=== PATIENT | male | born 1960 | race Caucasian/White ===

== ENCOUNTER → 2017-12-31 07:54 | Outpatient (CLI) | payer BC, SELFPAY ==
[2017-12-31 09:17] LABS: Absolute Lymphocyte Count 1.51 X10^3/ul (0.83-4.51); Absolute Neutrophil Count 3.5 X10^3/uL (2.0-7.7); Basophil# 0.09 X10^3/uL; Basophil% 1.5 % (0-1); Eosinophil# 0.36 X10^3/uL; Hematocrit 43.3 % (40-54); Hemoglobin 14.5 g/dl (13.0-16.5); Lymphocyte # 1.51 X10^3/ul (4.0); Mean Corp Hgb Conc 33.5 g/gl (32-36); Mean Corpuscular Hgb 29.2 pg (27.0-32.0); Mean Corpuscular Volume 87.1 fL (80-94); Mean Platelet Vol. 9.8 fl (6.2-12.0); Monocyte# 0.52 X10^3/uL; Monocyte% 8.6 % (0-10); Neutrophil # 3.53 X10^3/uL (2.7-7.7); Neutrophil % 58.4 % (47-70); Platelet Count 260 K/mm3 (150-450); RBC Distribution Width CV 13.1 % (11.6-14.6); RBC Distribution Width SD 41.1 fl (35.1-43.9); Red Blood Count 4.97 M/mm3 (4.6-6.2)
[2017-12-31 09:21] LABS: POSITIVE COUNT NO; POSITIVE DIFFERENTIAL NO; POSITIVE MORPHOLOGY NO
[2017-12-31 09:34] LABS: AST(SGOT) 26 U/L (15-37); Alanine Aminotransfer ALT/SGPT 30 U/L (16-61); Albumin, Serum 3.6 g/dL (3.2-5.0); Alkaline Phosphatase 77 U/L (45-117); Anion Gap 6 (5-15); BUN 14 mg/dL (7-18); BUN/Creat Ratio 16.2 RATIO (10-20); Calcium,Total 8.6 mg/dL (8.5-10.1); Chloride 105 mmol/L (98-107); Cholesterol 140 mg/dL (200); Creatinine, Serum 0.86 mg/dL (0.70-1.30); EST Glomerular Filtration Rate 97 mL/min (>60); Est Glom Filt Rate - Afr Amer 117 mL/min (>60); Globulin 3.7 g/dL (2.2-4.2); Glucose 81 mg/dL (74-106); High Density Lipoprotein 51 mg/dL; PSA,Total - Annual Screen 4.06 ng/mL (0.00-4.00); Potassium 4.1 mmol/L (3.5-5.1); Protein, Total 7.3 g/dL (6.4-8.2); Sodium Level 138 mmol/L (136-145); Triglycerides 99 mg/dL; Very Low Density Lipoprotein 20 mg/dL (5-40)
== END ==
PROVIDERS: Family Provider Family Medicine; PCP Family Medicine; Visit Provider Family Medicine
DX: Z00.01 Encounter for general adult medical examination with abnormal findings (principal); Z12.5 Encounter for screening for malignant neoplasm of prostate; E78.5 Hyperlipidemia, unspecified
CPT/HCPCS: 36415; 80053; 80061; 84153; 85025; G0103

== ENCOUNTER → 2019-02-03 06:51 | Outpatient (CLI) | payer BC, SELFPAY ==
[2019-02-03 07:01] LABS: Absolute Lymphocyte Count 0.92 X10^3/ul (0.83-4.51); Absolute Neutrophil Count 3.9 X10^3/uL (2.0-7.7); Basophil# 0.04 X10^3/uL; Basophil% 0.7 % (0-1); Eosinophils% 6.8 % (0-5); Hematocrit 42.7 % (40-54); Hemoglobin 14.3 g/dl (13.0-16.5); Lymphocyte # 0.92 X10^3/ul (4.0); Lymphocyte % 15.8 % (19-41); Mean Corp Hgb Conc 33.5 g/gl (32-36); Mean Corpuscular Volume 86.6 fL (80-94); Mean Platelet Vol. 9.1 fl (6.2-12.0); Monocyte% 10.3 % (0-10); Neutrophil # 3.87 X10^3/uL (2.7-7.7); Neutrophil % 66.2 % (47-70); Platelet Count 235 K/mm3 (150-450); RBC Distribution Width CV 13.6 % (11.6-14.6); RBC Distribution Width SD 42.7 fl (35.1-43.9); Red Blood Count 4.93 M/mm3 (4.6-6.2); White Blood Count 5.8 K/mm3 (4.4-11.0)
[2019-02-03 07:05] LABS: POSITIVE COUNT NO; POSITIVE DIFFERENTIAL NO; POSITIVE MORPHOLOGY NO
[2019-02-03 07:30] LABS: AST(SGOT) 30 U/L (15-37); Alanine Aminotransfer ALT/SGPT 34 U/L (16-61); Albumin, Serum 3.5 g/dL (3.2-5.0); Alkaline Phosphatase 75 U/L (45-117); Anion Gap 6 (5-15); BUN 12 mg/dL (7-18); BUN/Creat Ratio 12.6 RATIO (10-20); Calcium,Total 8.6 mg/dL (8.5-10.1); Chloride 108 mmol/L (98-107); Cholesterol 136 mg/dL (200); Creatinine, Serum 0.96 mg/dL (0.70-1.30); EST Glomerular Filtration Rate 86 mL/min (>60); Est Glom Filt Rate - Afr Amer 104 mL/min (>60); Globulin 3.4 g/dL (2.2-4.2); Glucose 93 mg/dL (74-106); High Density Lipoprotein 43 mg/dL; PSA,Total - Annual Screen 3.28 ng/mL (0.00-4.00); Protein, Total 6.9 g/dL (6.4-8.2); Sodium Level 139 mmol/L (136-145); Triglycerides 135 mg/dL; Very Low Density Lipoprotein 27 mg/dL (5-40)
== END ==
LOC: LAB 06:52 → LABSPEC 02-05 08:24
PROVIDERS: Referring Provider Family Medicine; Visit Provider Family Medicine
DX: Z00.00 Encounter for general adult medical examination without abnormal findings (principal); Z12.5 Encounter for screening for malignant neoplasm of prostate
CPT/HCPCS: 36415; 80053; 80061; 84153; 85025; G0103

== ENCOUNTER → 2020-03-15 08:08 | Outpatient (CLI) | payer BC, SELFPAY ==
[2018-12-11 17:44] VITALS: BMI 33.6
[2020-03-15 08:28] LABS: Absolute Lymphocyte Count 1.29 X10^3/uL (0.83-4.51); Absolute Neutrophil Count 4.5 X10^3/uL (2.0-7.7); Basophil# 0.09 X10^3/uL; Basophil% 1.3 % (0-1); Eosinophil# 0.48 X10^3/uL; Hemoglobin 14.2 g/dL (13.0-16.5); Lymphocyte # 1.29 X10^3/ul (4.0); Lymphocyte % 18.7 % (19-41); Mean Corpuscular Hgb 28.6 pg (27.0-32.0); Mean Corpuscular Volume 86.5 fL (80-94); Mean Platelet Vol. 9.1 fl (6.2-12.0); Monocyte# 0.52 X10^3/uL; Monocyte% 7.5 % (0-10); NRBC Flagged by Analyzer 0 % (0-5); Neutrophil % 65.2 % (47-70); Platelet Count 242 K/mm3 (150-450); RBC Distribution Width CV 13.4 % (11.6-14.6); RBC Distribution Width SD 42.1 fl (35.1-43.9); Red Blood Count 4.97 M/mm3 (4.6-6.2); White Blood Count 6.9 K/mm3 (4.4-11.0)
--- NOTE | 2020-03-15 08:30 | RAD_ITS ---
STUDY: X-RAY - PELVIS AND BILATERAL HIPS REASON FOR EXAM: Male, 59 years old. BILATERAL HIP PAIN. NO KNOWN INJURY. TECHNIQUE: AP view of the pelvis.? 2 views of the right hip, and 2 views of the left hip were obtained. COMPARISON: None. FINDINGS: There is a non-specific bowel gas pattern. Normal visualized soft tissue structures. Normal bilateral iliac wings, sacroiliac joints and visualized sacrum. Normal bilateral superior and inferior pubic rami. Normal pubic symphysis. Normal bilateral ischial tuberosities. Normal visualized right femoral head. Normal right acetabulum. Normal right hip joint. Normal visualized left femoral head. Normal left acetabulum. Normal left hip joint. RAD/Hips B/L min 2 views w/ Pelvis IMPRESSION: Normal x-ray examination of the pelvis and bilateral hips. Electronically Signed: Smith Thurston, at 9:04 EDT Tel , Service support ,
[2020-03-15 08:51] LABS: AST(SGOT) 22 U/L (15-37); Alanine Aminotransfer ALT/SGPT 28 U/L (16-61); Albumin, Serum 3.6 g/dL (3.2-5.0); Alkaline Phosphatase 69 U/L (45-117); Anion Gap 7 (5-15); BUN 13 mg/dL (7-18); BUN/Creat Ratio 14.3 RATIO (10-20); Calcium,Total 8.6 mg/dL (8.5-10.1); Chloride 111 mmol/L (98-107); Cholesterol 178 mg/dL (200); Creatinine, Serum 0.91 mg/dL (0.70-1.30); EST Glomerular Filtration Rate 90 mL/min (>60); Est Glom Filt Rate - Afr Amer 109 mL/min (>60); Globulin 3.6 g/dL (2.2-4.2); Glucose 94 mg/dL (74-106); High Density Lipoprotein 56 mg/dL; PSA,Total - Annual Screen 4.58 ng/mL (0.00-4.00); Potassium 4.2 mmol/L (3.5-5.1); Protein, Total 7.2 g/dL (6.4-8.2); Sodium Level 142 mmol/L (136-145); Triglycerides 90 mg/dL; Very Low Density Lipoprotein 18 mg/dL (5-40)
== END ==
PROVIDERS: PCP Family Medicine; Referring Provider Family Medicine; Visit Provider Family Medicine
DX: Z00.00 Encounter for general adult medical examination without abnormal findings (principal); M25.551 Pain in right hip; M25.552 Pain in left hip; Z12.5 Encounter for screening for malignant neoplasm of prostate
CPT/HCPCS: 36415; 73521; 80053; 80061; 84153; 85025; G0103

== ENCOUNTER → 2021-01-31 08:18 | Outpatient (CLI) | payer BC, SELFPAY ==
[2018-12-11 17:44] VITALS: BMI 33.6
[2021-01-31 08:56] LABS: Absolute Lymphocyte Count 1.42 X10^3/uL (0.83-4.51); Absolute Neutrophil Count 4.1 X10^3/uL (2.0-7.7); Basophil# 0.08 X10^3/uL; Basophil% 1.2 % (0-1); Eosinophil# 0.47 X10^3/uL; Eosinophils% 7.1 % (0-5); Hematocrit 43.6 % (40-54); Hemoglobin 14.5 g/dL (13.0-16.5); Lymphocyte # 1.42 X10^3/ul (4.0); Lymphocyte % 21.4 % (19-41); Mean Corp Hgb Conc 33.3 g/dL (32-36); Mean Corpuscular Hgb 29.3 pg (27.0-32.0); Mean Corpuscular Volume 88.1 fL (80-94); Mean Platelet Vol. 9.2 fl (6.2-12.0); Monocyte# 0.55 X10^3/uL; Monocyte% 8.3 % (0-10); NRBC Flagged by Analyzer 0 % (0-5); Neutrophil # 4.08 X10^3/uL (2.7-7.7); Neutrophil % 61.5 % (47-70); Platelet Count 288 K/mm3 (150-450); RBC Distribution Width CV 13.3 % (11.6-14.6); RBC Distribution Width SD 43.4 fl (35.1-43.9); Red Blood Count 4.95 M/mm3 (4.6-6.2); White Blood Count 6.6 K/mm3 (4.4-11.0)
[2021-01-31 09:18] LABS: AST(SGOT) 21 U/L (15-37); Alanine Aminotransfer ALT/SGPT 31 U/L (16-61); Albumin, Serum 3.8 g/dL (3.2-5.0); Alkaline Phosphatase 74 U/L (45-117); Anion Gap 6 (5-15); BUN 17 mg/dL (7-18); BUN/Creat Ratio 17.3 RATIO (10-20); Chloride 107 mmol/L (98-107); Cholesterol 192 mg/dL (200); Creatinine, Serum 0.98 mg/dL (0.70-1.30); EST Glomerular Filtration Rate 82 mL/min (>60); Est Glom Filt Rate - Afr Amer 99 mL/min (>60); Globulin 3.8 g/dL (2.2-4.2); Glucose 91 mg/dL (74-106); High Density Lipoprotein 55 mg/dL; PSA,Total - Annual Screen 4.96 ng/mL (0.00-4.00); Protein, Total 7.6 g/dL (6.4-8.2); Sodium Level 140 mmol/L (136-145); Triglycerides 79 mg/dL; Very Low Density Lipoprotein 16 mg/dL (5-40)
== END ==
PROVIDERS: PCP Family Medicine; Referring Provider Family Medicine; Visit Provider Family Medicine
DX: Z00.00 Encounter for general adult medical examination without abnormal findings (principal); Z12.5 Encounter for screening for malignant neoplasm of prostate
CPT/HCPCS: 36415; 80053; 80061; 84153; 85025; G0103

== ENCOUNTER → 2021-02-19 10:39 | Outpatient (CLI) | payer BC, SELFPAY ==
[2018-12-11 17:44] VITALS: BMI 33.6
--- NOTE | 2021-02-19 10:41 | VDLE_ITS ---
Reason For Study: Hematoma right leg RIGHT GSV is normal. CFV is compressible, spontaneous, phasic, competent and demonstrates normal augmentation. FV is compressible, spontaneous, phasic, competent and demonstrates normal augmentation. POP V is compressible, spontaneous, phasic, competent and demonstrates normal augmentation. T/P Trunk is compressible. PTV is compressible. RT PerV is compressible. Nonvascularized structure noted at the anterior mid calf measuring approximently 2.70 x 1.01 x 3.37 cm. Procedure This is a venous duplex using B-mode, color flow and spectral Doppler. Exam performed in department. A preliminary report was called and/or faxed to S[facility]. VL/Venous Duplex US, Unilateral Interpretation Summary Deep veins of the right lower extremity are patent and compressible segmentally . There is no evidence of right lower extremity deep vein thrombosis. Valvular competence kirstin ears intact within the proximal deep venous system on the right . The right great saphenous vein a ppears patent and compressible segmentally. A non-vascular structure is noted in the right anteri or mid-calf, measuring 2.70 cm x 1.01 cm x 3.37 cm. This may represent a hematoma. Clinical correlation is advised. Ordering Physician: Edgar Hill Referring Physician: Edgar Hill Performed By: Elyse Mccullough RVT
== END ==
PROVIDERS: PCP Family Medicine; Referring Provider Family Medicine; Visit Provider Family Medicine
DX: S80.11XA Contusion of right lower leg, initial encounter (principal)
CPT/HCPCS: 93971

== ENCOUNTER 2022-02-06 07:49 | Outpatient (CLI) | payer BC, SELFPAY ==
[2022-02-06 08:28] LABS: Absolute Lymphocyte Count 1.54 X10^3/uL (0.83-4.51); Absolute Neutrophil Count 4.3 X10^3/uL (2.0-7.7); Basophil# 0.08 X10^3/uL; Basophil% 1.1 % (0-1); Eosinophil# 0.38 X10^3/uL; Eosinophils% 5.4 % (0-5); Hematocrit 44.8 % (40-54); Hemoglobin 14.7 g/dL (13.0-16.5); Lymphocyte # 1.54 X10^3/ul (0.83-4.51); Mean Corp Hgb Conc 32.8 g/dL (32-36); Mean Corpuscular Hgb 29.2 pg (27.0-32.0); Mean Corpuscular Volume 88.9 fL (80-94); Mean Platelet Vol. 9.3 fl (6.2-12.0); Monocyte# 0.67 X10^3/uL; Monocyte% 9.6 % (0-10); NRBC Flagged by Analyzer 0 % (0-5); Neutrophil # 4.29 X10^3/uL (2.7-7.7); Neutrophil % 61.5 % (47-70); Platelet Count 257 K/mm3 (150-450); RBC Distribution Width CV 13.1 % (11.6-14.6); RBC Distribution Width SD 42.4 fl (35.1-43.9); Red Blood Count 5.04 M/mm3 (4.6-6.2)
[2022-02-06 08:48] LABS: AST(SGOT) 23 U/L (15-37); Alanine Aminotransfer ALT/SGPT 29 U/L (16-61); Albumin, Serum 3.6 g/dL (3.2-5.0); Alkaline Phosphatase 68 U/L (45-117); Anion Gap 3 (5-15); BUN 12 mg/dL (7-18); BUN/Creat Ratio 11.4 RATIO (10-20); Calcium,Total 8.7 mg/dL (8.5-10.1); Chloride 108 mmol/L (98-107); Cholesterol 170 mg/dL (200); Creatinine, Serum 1.05 mg/dL (0.70-1.30); EST Glomerular Filtration Rate 76 mL/min (>60); Est Glom Filt Rate - Afr Amer 92 mL/min (>60); Globulin 3.5 g/dL (2.2-4.2); Glucose 96 mg/dL (74-106); High Density Lipoprotein 53 mg/dL; PSA,Total - Annual Screen 6.52 ng/mL (0.00-4.00); Potassium 4.4 mmol/L (3.5-5.1); Protein, Total 7.1 g/dL (6.4-8.2); Sodium Level 139 mmol/L (136-145); Triglycerides 105 mg/dL; Very Low Density Lipoprotein 21 mg/dL (5-40)
== END 2022-02-06 23:59 | disposition home or self-care (01) ==
LOC: MTLAB 07:50
PROVIDERS: PCP Family Medicine; Referring Provider Family Medicine; Visit Provider Family Medicine
DX: Z00.00 Encounter for general adult medical examination without abnormal findings (principal); Z12.5 Encounter for screening for malignant neoplasm of prostate
CPT/HCPCS: 36415; 80053; 80061; 84153; 85025; G0103

== ENCOUNTER → 2022-08-10 | Outpatient (CLI) | payer OTHER, SELFPAY ==
--- NOTE | 2022-08-10 15:40 | RAD_ITS ---
STUDY: X-RAY - RIGHT KNEE REASON FOR EXAM: Male, 61 years old. No injury. TECHNIQUE: 4 view(s) of the knee. COMPARISON: None. FINDINGS: Normal visualized distal femur. Normal visualized proximal tibia and fibula. Normal proximal tibiofibular articulation. There is no acute fracture, dislocation or destructive osseous pathology. Normal medial femorotibial compartment. Normal lateral femorotibial compartment. Normal patellofemoral articulation. There is no demonstrated joint effusion. The soft tissue structures are unremarkable. RAD/Knee 4 or More Views IMPRESSION: No osseous or articular abnormality of the right knee. Electronically Signed: Sidney Jones DO at 22:57 EDT ,
== END | disposition home or self-care (01) ==
LOC: RAD 15:31
PROVIDERS: PCP Family Medicine; Referring Provider Family Medicine; Visit Provider Family Medicine
DX: M25.561 Pain in right knee (principal)
CPT/HCPCS: 73564

== ENCOUNTER → 2022-08-24 | Outpatient (CLI) | payer OTHER, SELFPAY ==
--- NOTE | 2022-08-24 18:15 | MRI_ITS ---
STUDY: MRI RIGHT KNEE REASON FOR EXAM: Male, 61 years old. Persistent RIGHT knee pain TECHNIQUE: Standardized fat and water weighted pulse sequences were obtained in all 3 orthogonal planes. COMPARISON: X-ray of the right knee dated August 10, 2022 FINDINGS: A small to moderate size mixed vertical and oblique undersurface tear of the periphery of the posterior horn of medial meniscus is present. A second radial tear of the free edge of the body of the medial meniscus is also present as seen on image 14/30 series 6. The anterior horn is normal. Mild intrasubstance degenerative signal and swelling of the posterior horn of the medial meniscus is also visualized. There is diffuse, less than 50% thickness articular cartilage loss of the medial femorotibial compartment. Moderate cartilage loss and irregularity is present in the inner one third aspect of the medial femoral condyle. Normal medial femoral condyle and tibial plateau. Normal medial collateral ligamentous complex (MCL). Normal distal semimembranosus, gracilis and semitendinosus tendons. Normal lateral meniscus. Normal hyaline cartilage of the lateral femorotibial compartment. Normal lateral femoral condyle and tibial plateau. Normal proximal tibiofibular articulation. Normal lateral collateral (fibular) ligament. Normal popliteus tendon. Normal biceps femoris tendon. Normal anterior cruciate ligament (ACL). Normal posterior cruciate ligament (PCL). Normal congruent patellofemoral articulation. There is moderate to high-grade loss of cartilage over the inferior pole of the medial patellar facet involving a 6.8 mm region. Normal remaining patellofemoral cartilage. Normal medial and lateral patellar retinaculum. Normal quadriceps tendon. Normal patellar tendon. Normal Hoffa''s fat pad. Small joint effusion noted. Mild subcutaneous edema is present anterior aspect the knee joint. The otherwise visualized osseous structures are unremarkable. MRI/Lower Ext Joint Only (Routine) IMPRESSION: 1. A small to moderate size mixed vertical and oblique undersurface tear of the periphery of the posterior horn of medial meniscus is present. A second radial tear of the free edge of the body of the medial meniscus is also present as seen on image series 6. 2. Moderate to high-grade loss of cartilage over the inferior pole of the medial patellar facet involving a 6.8 mm region Electronically Signed: Sage San MD at 9:53 EDT ,
== END | disposition home or self-care (01) ==
LOC: MRI 17:44
PROVIDERS: PCP Family Medicine; Visit Provider Family Medicine
DX: M25.561 Pain in right knee (principal)
CPT/HCPCS: 73721

== ENCOUNTER 2022-09-29 05:59 | Day surgery (SDC) | payer OTHER, SELFPAY ==
[2022-09-13 12:26] LABS: Absolute Lymphocyte Count 1.59 X10^3/uL (0.83-4.51); Absolute Neutrophil Count 4.6 X10^3/uL (2.0-7.7); Basophil# 0.09 X10^3/uL; Basophil% 1.2 % (0-1); Eosinophil# 0.38 X10^3/uL; Eosinophils% 5.2 % (0-5); Hematocrit 42.2 % (40-54); Hemoglobin 14.3 g/dL (13.0-16.5); Lymphocyte # 1.59 X10^3/ul (0.83-4.51); Lymphocyte % 21.8 % (19-41); Mean Corp Hgb Conc 33.9 g/dL (32-36); Mean Corpuscular Hgb 29.7 pg (27.0-32.0); Mean Corpuscular Volume 87.7 fL (80-94); Mean Platelet Vol. 9.4 fl (6.2-12.0); Monocyte# 0.63 X10^3/uL; Monocyte% 8.7 % (0-10); NRBC Flagged by Analyzer 0 % (0-5); Neutrophil # 4.56 X10^3/uL (2.7-7.7); Neutrophil % 62.7 % (47-70); Platelet Count 242 K/mm3 (150-450); RBC Distribution Width CV 12.8 % (11.6-14.6); RBC Distribution Width SD 41.3 fl (35.1-43.9); Red Blood Count 4.81 M/mm3 (4.6-6.2); White Blood Count 7.3 K/mm3 (4.4-11.0)
[2022-09-13 13:16] LABS: Anion Gap 9 (5-15); BUN 11 mg/dL (7-18); BUN/Creat Ratio 11.9 RATIO (10-20); Calcium,Total 9.2 mg/dL (8.5-10.1); Chloride 105 mmol/L (98-107); Creatinine, Serum 0.92 mg/dL (0.70-1.30); EST Glomerular Filtration Rate 88 mL/min (>60); Est Glom Filt Rate - Afr Amer 106 mL/min (>60); Glucose 90 mg/dL (74-106); Potassium 4.1 mmol/L (3.5-5.1); Sodium Level 140 mmol/L (136-145)
[2022-09-29] VITALS (8 sets, daily range): BP systolic 99–129; BP diastolic 63–82; PULSE 55–72; RESP 16–18; TEMP 36.1–36.6; O2SAT 94–100; BMI 32.5
[2022-09-29] MEDS: Lactated Ringers 1,000 ML 15 ML IV (06:39)
--- NOTE | 2022-09-29 06:58 | PCM.OPRPT ---
Report of Operation Date of Procedure: 09/29/22 Pre-Operative Diagnosis: Right knee medial meniscus tear Post-Operative Diagnosis: Right knee medial meniscus tear Right knee medial compartment chondromalacia Surgery/Procedure Performed:: Right knee arthroscopic medial meniscectomy Right knee arthroscopic medial compartment chondroplasty Description of Surgical Findings:: Right knee medial meniscus tear Surgeon: Smith Plunkett tool polishing machine operator: None Type of Anesthesia: General Anesthesiologist: Nigel Graham Special Medications: Ancef Estimated Blood Loss (mL): 5 Fluids Replaced: 1 L crystalloid Description of Procedure: On the date of the procedure, the patient's R lower extremity was marked in the preoperative area. Patient was brought back to the operating room where they were transferred to the bed. Anesthesia assumed control of the C-spine airway and administered anesthetic. All bony prominences were identified and well-padded and the R leg was placed in the arthroscopic leg smalls. The contralateral leg was then draped over the bed and well-padded. There was padding underneath both sciatic nerves. The foot of the bed was then dropped and the R leg was prepped in a sterile fashion. The surgeon then scrubbed. Upon reentering the room, the operative leg was draped in a standard orthopedic fashion. A timeout was called, everyone agreed upon the side, the site, the procedure to be performed, patient's identity and antibiotics given. Incisions were marked out for the medial and lateral infrapatellar portals. Esmarch bandage was then used to exsanguinate the leg and tourniquet was placed at 250 mmHg. At this time, the lateral portal incision was made in a vertical fashion. The trocar was placed into the joint. The camera was then placed and the patellofemoral joint was visualized. The patella did appear to have a central crevice otherwise minimal chondral changes. The trochlea appeared to have grade 2 chondral changes. We then directed our attention to the medial gutter where there was no foreign body. Then directed our attention to the medial joint compartment. There were grade 2-3 chondral changes on the medial distal femur, grade 1 chondral changes on the medial tibial plateau. The medial meniscus had a posterior horn parrot-beak tear. The medial portal was then placed under direct visualization using a spinal needle an 11 blade scalpel. Once this was done a probe was placed in the joint and the meniscus was probed finding posterior horn parrot-beak tear. The biters and hira were then used sequentially to debriding get rid of any free edges that could be a source of pain and catching in the meniscus tear. There was also some cartilage edge flaps around the areas of chondromalacia. These were removed with a shaver performing a chondroplasty of the medial compartment once we felt medial meniscus tear was adequately debrided, we again visualized the joint and noted the meniscus tear was adequately debrided. Attention was then turned towards the notch where the anterior cruciate ligament was intact. PCL was visualized and appeared intact. Attention was then directed towards the lateral compartment where the lateral distal femur had minimal chondral changes, the lateral proximal tibia had minimal chondral changes. The lateral meniscus had no tears. We then directed our attention to the lateral gutter, which was visualized and no free bodies were noted. At this time the wound was copiously irrigated out with normal saline with epinephrine. The wound was closed with 4-0 nylon and 0.5% Marcaine and epinephrine were injected for local anesthetic. Xeroform was placed over the incision. Sterile dressing was placed. Compressive dressing was placed. Tourniquet was let down. For that there was then placed up. Patient was awakened by anesthesia patient was transferred to the PACU for recovery in stable condition. Postoperative plan: Patient will be made weight-bear as tolerated. Return to activities as tolerated. He will come to the office in 2 weeks for postoperative wound check and suture removal. If he is doing well that time he can follow-up as needed. Complications No intraoperative complications Admit VTE Documentation VTE Present on Admission: No VTE Mechan Device Prophylaxis: SCD's VTE Pharm Prophylaxis ordered?: Yes
[2022-09-29] MEDS: Clindamycin in 0.9% Sod Chlor 600 MG/50 ML BAG 100 MG IV (07:40)
[2022-09-29] MEDS: Epinephrine (1 mg/ml) 1 MG/ML VIAL (07:51)
[2022-09-29] MEDS: Ketorolac 15 MG/ML Vial IV (09:01)
== END 2022-09-29 11:26 | disposition home or self-care (01) ==
LOC: SDC 06:00 → AC 06:01
PROVIDERS: PCP Family Medicine; Referring Provider Specialist; Visit Provider Specialist
PROC: (CPT 29870; principal; 2022-09-29 07:10)
DX: S83.241A Other tear of medial meniscus, current injury, right knee, initial encounter (principal); M94.261 Chondromalacia, right knee; J45.909 Unspecified asthma, uncomplicated; E78.5 Hyperlipidemia, unspecified; X50.1XXA Overexertion from prolonged static or awkward postures, initial encounter
CPT/HCPCS: 29881; 01400; 36415; 80048; 85025; 87081; 93005; J7120; J2405

== ENCOUNTER 2022-10-29 10:00 | Outpatient (RCR) | payer OTHER, SELFPAY ==
--- NOTE | 2022-10-06 10:43 | HP.PTEVAL ---
Patient's Visit Information CAROLYNN ASENCIO is a 61 year old M referred to Physical Therapy by VAMSI Umaña with a diagnosis of Medial meniscus tear s/p meniscectomy R 09/29. Date of Evaluation: 10/06/22 Physical Therapist: Chris Sam, DPT, OCS, CSCS - Visit Plan Frequency: 3x /Week Duration: 4-6 Weeks Plan: 3x/week for 3-6 weeks for. Use bike to warm up. 1. ROM and patellar mobs R knee, rollout and stretch quad. 2. strengthen progression R LE. 3. Funcitonal training on and off floor and steps. Progress to I HEP/gym per pt desire. - Subjective Surgery 7 days ago on huge tear in meniscus in R knee. It was torn for a while since July 11 when he was taking his pants off. Meniscectomy 09/29. Since then has slowy progressing. Did not walk first day and had crutches and then got rid of them the next day. Gradually increasing stride. Working on steps now. No precautions, no ex given. Walking pretty goo now. Pain level is 0 at rest but 3/10 descending steps or bending knee. Sleep is OK for the most part but turning in bed can hurt. Needs to change positions. 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 Is off now until november 14. Needs to get down on floor. Basic ADLs at home, going OK but shoe and scok on hurt. Hobbies: Hunting and walking.Bicycling. - Pain R knee Pain Intensity (Out of 10): 0 Pain Intensity Range: 0, 3 - Objective Walks into PT without AD I and with good gait pattern, safe. Trasnfers I, Weakness in R LE lifting onto table. Steps reciprocally with one rail and pain with bending R knee to place or descend. Also R weak vs L. R knee AROM -2 to 95, PROM 0 to 108 after stretching. quad and HS mildly tight. B. sensation LE WNL to gross light touch B. Hip and ankle aROM WFL. strength ankles 4/5, hips abd and ext 4- B, flexion R 3+ and L 4. knee extension 3+ R and 4 L, HS 4- R and 4 L. Balance is good. - Balance/Special Test Scores Lower Extremity Functional Score: 36 - Goals Goal 1:: ST : Full aROM without pain R knee Goal Time Frame: 2-4 Weeks Goal 2:: Walk and steps normal reciprocal without pain Goal Time Frame: 2-4 Weeks Goal 3:: I appropr HEp for terminal superintendent management Goal Time Frame: 4-6 Weeks Goal 4:: Ready to return to work Goal Time Frame: 4-6 Weeks Goal 5:: LEFS 66 Goal Time Frame: 4-6 Weeks - Rehabilitation Potential Physical Therapy Diagnosis: R knee stiffness and pain after surgery. Rehabilitation Potential: Good - Anticipated Interventions Patient/Client Instruction: Educate patient on: Condition, Plan of Care For the Purpose of:: To decrease pain, To increase ROM, To improve nutrient delivery to tissue, To improve muscle performance and motor function, To increase tolerance to activity/condition/position Therapeutic Exercise to Include: Strength training, Flexibilty training, Gait and locomotor training, Passive ROM, Active ROM For the Purpose of:: To decrease pain, To increase ROM, To improve nutrient delivery to tissue, To improve muscle performance and motor function, To improve ability of physical actions for home/community/work/leisure Manual Therapy Techniques to Include: Passive ROM, Soft tissue mobilization For the Purpose of:: To decrease pain, To increase ROM Cryotherapy (ice pack, ice massage): Yes For the Purpose of:: To decrease pain, To decrease swelling/inflammation Thank you for the opportunity to evaluate your patient. For Medicare and Medicare HMO plans, please review the plan of care and approve it. It will need to be FAXED BACK to us at [phone] for Medicare purposes. For Medicare only, by signing this I certify the plan of care. Please let me know if there are questions or concerns regarding this plan of care. Physician Signature: Date:
--- NOTE | 2022-10-29 10:33 | HP.PTDCSUM ---
It has been my pleasure to treat CAROLYNN ASENCIO referred by VAMSI Umaña, with the diagnosis of Medial meniscus tear s/p meniscectomy R 09/29 for a total of 9 visit(s). Discharge Date: Please see the following information for a summary of their discharge status. Subjective: Wants to continue on own at [facility]. No f/u with doctor. Activities at home are normal except kneeling. Sleeping Ok. Pain this week to 3/10 with kneeling. 0 /10 otherwise. Not working yet but will return November 15. R knee Pain Intensity (Out of 10): 0 % Improvement: 91 Objective/Function: 0-137 aROM, more painful WB)stooping) . Steps are normal without rail. Walking is normal. Pt happy and ready to continue on her own. Goal 1:: ST : Full aROM without pain R knee Goal Progress: Goal Met Goal 2:: Walk and steps normal reciprocal without pain Goal Progress: Goal Met Goal 3:: I appropr HEp for senior living management Goal Progress: Goal Met Goal 4:: Ready to return to work Goal Progress: 11/15 Goal 5:: LEFS 66 Goal Progress: Goal Met Plan: d/c If there are questions or concerns regarding this patient's physical therapy, please feel free to call me at [phone]. Thank you for the referral of this patient. Sincerely, Chris Sam, DPT, OCS, CSCS Balance/Gait/Functional tests - Balance/Special Test Scores Lower Extremity Functional Score: 75
== END 2022-10-29 19:00 | disposition home or self-care (01) ==
LOC: PT 10:00
PROVIDERS: PCP Family Medicine; Referring Provider Physician Assistant Surgical; Visit Provider Physician Assistant Surgical
DX: S83.241D Other tear of medial meniscus, current injury, right knee, subsequent encounter (principal); M17.11 Unilateral primary osteoarthritis, right knee
CPT/HCPCS: 97110; 97161; 97164

== ENCOUNTER → 2023-02-12 | Outpatient (CLI) | payer OTHER, SELFPAY ==
[2023-02-12 08:41] LABS: Cholesterol 197 mg/dL (200); High Density Lipoprotein 53 mg/dL; PSA,Total - Annual Screen 5.87 ng/mL (0.00-4.00); Triglycerides 140 mg/dL; Very Low Density Lipoprotein 28 mg/dL (5-40)
== END | disposition home or self-care (01) ==
PROVIDERS: PCP Family Medicine; Referring Provider Family Medicine; Visit Provider Family Medicine
DX: Z00.00 Encounter for general adult medical examination without abnormal findings (principal); Z12.5 Encounter for screening for malignant neoplasm of prostate
CPT/HCPCS: 36415; 80061; 84153; G0103

== ENCOUNTER → 2023-04-23 | Outpatient (CLI) | payer OTHER, SELFPAY ==
[2023-04-23 08:34] LABS: Hematocrit 42.9 % (40-54); Hemoglobin 14.6 g/dL (13.0-16.5); Mean Corpuscular Hgb 30.3 pg (27.0-32.0); Mean Platelet Vol. 9.8 fl (6.2-12.0); Platelet Count 225 K/mm3 (150-450); RBC Distribution Width CV 13.4 % (11.6-14.6); Red Blood Count 4.82 M/mm3 (4.6-6.2); White Blood Count 5.8 K/mm3 (4.4-11.0)
[2023-04-23 09:44] LABS: AST(SGOT) 25 U/L (15-37); Alanine Aminotransfer ALT/SGPT 36 U/L (16-61); Albumin, Serum 3.6 g/dL (3.2-5.0); Alkaline Phosphatase 77 U/L (45-117); Anion Gap 7 (5-15); BUN 14 mg/dL (7-18); BUN/Creat Ratio 15.3 RATIO (10-20); Calcium,Total 8.9 mg/dL (8.5-10.1); Chloride 105 mmol/L (98-107); Creatinine, Serum 0.92 mg/dL (0.70-1.30); EST Glomerular Filtration Rate 89 mL/min (>60); Est Glom Filt Rate - Afr Amer 107 mL/min (>60); Globulin 3.6 g/dL (2.2-4.2); Glucose 92 mg/dL (74-106); Potassium 3.9 mmol/L (3.5-5.1); Protein, Total 7.2 g/dL (6.4-8.2); Sodium Level 138 mmol/L (136-145); Thyroid Stim Hormone (TSH) 5.36 uIU/mL (0.358-3.74)
[2023-04-25 08:24] LABS: Vitamin B12 522 pg/mL (211-911)
[2023-04-27 18:07] LABS: Vitamin B1, Thiamine 146.9 nmol/L (66.5-200.0)
== END | disposition home or self-care (01) ==
PROVIDERS: PCP Family Medicine; Visit Provider Psychiatry & Neurology Neurology
DX: G50.0 Trigeminal neuralgia (principal); R53.83 Other fatigue
CPT/HCPCS: 36415; 80053; 82607; 82746; 84425; 84443; 85027

== ENCOUNTER → 2023-05-03 | Outpatient (CLI) | payer OTHER, SELFPAY ==
--- NOTE | 2023-05-03 17:50 | MRI_ITS ---
EXAM: MR HEAD WITHOUT AND WITH INTRAVENOUS CONTRAST CLINICAL INDICATION: Right trigeminal neuralgia (V2 distribution) -- With attention to the posterior fossa, painful rt upper jaw while eating TECHNIQUE: Multiplanar and multisequence MR images of the brain were obtained without and with intravenous contrast. CONTRAST: 21 mL of IV Clariscan. COMPARISON: No relevant prior studies available. FINDINGS: BRAIN AND EXTRA-AXIAL SPACES: Unremarkable. No intra- or extra-axial hemorrhage. No evidence of acute infarct. No intracranial mass or mass effect. There is preservation of the peterson/white matter interface. Posterior fossa structures are unremarkable. Ventricles are appropriate for age. No hydrocephalus. No focal signal abnormalities throughout the brain parenchyma particularly the trigeminal nerve pathways with and without contrast. Normal and symmetrical Meckel''s cave cisterns. No abnormal enhancing lesions intra-axially and extra-axially. Normal prominent perivascular space in the region of the left anterior commissure/inferior putamen. SELLA: Unremarkable. Normal sella turcica, pituitary gland, infundibular stalk, optic chiasm and hypothalamus. AUDITORY SYSTEM: Unremarkable. The internal auditory canals are patent. BONES/JOINTS: See above. SINUSES: Unremarkable as visualized. Clear. MASTOID AIR CELLS: Unremarkable as visualized. Clear. ORBITS: Unremarkable as visualized. Both globes, extraocular muscles, optic nerves and retrobulbar fat appear unremarkable. VASCULATURE: Unremarkable as visualized. Normal flow voids in the major intracranial circulation. MRI/Brain W/WO Contrast IMPRESSION: Normal MRI brain with and without contrast including the trigeminal nerve pathways. Electronically Signed: Jesus Deng MD at 10:27 EDT ,
== END | disposition home or self-care (01) ==
LOC: MRI 17:48
PROVIDERS: PCP Family Medicine; Referring Provider Psychiatry & Neurology Neurology; Visit Provider Psychiatry & Neurology Neurology
DX: G50.0 Trigeminal neuralgia (principal)
CPT/HCPCS: 70553; A9575

== ENCOUNTER → 2023-09-10 | Outpatient (CLI) | payer OTHER, SELFPAY ==
[2023-09-10 10:31] LABS: Hematocrit 43.8 % (40-54); Hemoglobin 14.4 g/dL (13.0-16.5); Mean Corp Hgb Conc 32.9 g/dL (32-36); Mean Corpuscular Hgb 29.9 pg (27.0-32.0); Mean Corpuscular Volume 90.9 fL (80-94); Mean Platelet Vol. 8.7 fl (6.2-12.0); Platelet Count 239 K/mm3 (150-450); RBC Distribution Width CV 13.1 % (11.6-14.6); RBC Distribution Width SD 43.9 fl (35.1-43.9); Red Blood Count 4.82 M/mm3 (4.6-6.2); White Blood Count 5.8 K/mm3 (4.4-11.0)
[2023-09-10 10:57] LABS: Carbamazepine (Tegretol) 7.7 ug/mL (4.0-12.0)
[2023-09-10 11:04] LABS: AST(SGOT) 15 U/L (15-37); Alanine Aminotransfer ALT/SGPT 23 U/L (16-61); Albumin, Serum 3.3 g/dL (3.2-5.0); Alkaline Phosphatase 69 U/L (45-117); Anion Gap 4 (5-15); BUN 16 mg/dL (7-18); BUN/Creat Ratio 17.8 RATIO (10-20); Calcium,Total 8.4 mg/dL (8.5-10.1); Chloride 109 mmol/L (98-107); EST Glomerular Filtration Rate 91 mL/min (>60); Est Glom Filt Rate - Afr Amer 110 mL/min (>60); Globulin 3.4 g/dL (2.2-4.2); Glucose 116 mg/dL (74-106); Potassium 3.8 mmol/L (3.5-5.1); Protein, Total 6.7 g/dL (6.4-8.2); Sodium Level 141 mmol/L (136-145); T4 Free Direct 0.56 ng/dL (0.76-1.46); Thyroid Stim Hormone (TSH) 3.29 uIU/mL (0.358-3.74)
== END | disposition home or self-care (01) ==
LOC: LAB 10:06
PROVIDERS: Psychiatry & Neurology Neurology; PCP Family Medicine; Referring Provider Family Medicine; Visit Provider Family Medicine
DX: R79.89 Other specified abnormal findings of blood chemistry (principal); G50.0 Trigeminal neuralgia
CPT/HCPCS: 36415; 80053; 80156; 84439; 84443; 85027

== ENCOUNTER → 2024-02-25 | Outpatient (CLI) | payer OTHER, SELFPAY ==
[2024-02-25 09:40] LABS: PSA,Total - Annual Screen 6.75 ng/mL (0.00-4.00)
== END | disposition home or self-care (01) ==
LOC: LAB 08:19
PROVIDERS: PCP Family Medicine; Referring Provider Family Medicine; Visit Provider Family Medicine
DX: Z12.5 Encounter for screening for malignant neoplasm of prostate (principal)
CPT/HCPCS: 36415; 84153; G0103

== ENCOUNTER → 2024-08-11 | Outpatient (CLI) | payer OTHER, SELFPAY ==
[2024-08-11 09:01] LABS: Hematocrit 43.7 % (40-54); Hemoglobin 14.6 g/dL (13.0-16.5); Mean Corp Hgb Conc 33.4 g/dL (32-36); Mean Corpuscular Hgb 29.6 pg (27.0-32.0); Mean Corpuscular Volume 88.6 fL (80-94); Mean Platelet Vol. 8.6 fl (6.2-12.0); Platelet Count 271 K/mm3 (150-450); RBC Distribution Width CV 12.9 % (11.6-14.6); RBC Distribution Width SD 42.1 fl (35.1-43.9); Red Blood Count 4.93 M/mm3 (4.6-6.2); White Blood Count 7.2 K/mm3 (4.4-11.0)
[2024-08-11 09:50] LABS: ALB/GLOB Ratio 1.1 RATIO (0.9-2.4); AST(SGOT) 19 U/L (15-37); Alanine Aminotransfer ALT/SGPT 25 U/L (16-61); Albumin, Serum 3.8 g/dL (3.2-5.0); Alkaline Phosphatase 89 U/L (45-117); Anion Gap 6 (5-15); BUN 13 mg/dL (7-18); Calcium,Total 9.1 mg/dL (8.5-10.1); Chloride 101 mmol/L (98-107); Creatinine, Serum 0.87 mg/dL (0.70-1.30); EST Glomerular Filtration Rate 94 mL/min (>60); Est Glom Filt Rate - Afr Amer 114 mL/min (>60); Globulin 3.6 g/dL (2.2-4.2); Glucose 96 mg/dL (74-106); Potassium 4.7 mmol/L (3.5-5.1); Protein, Total 7.4 g/dL (6.4-8.2); Sodium Level 135 mmol/L (136-145); T4 Free Direct 0.57 ng/dL (0.76-1.46)
[2024-08-16 07:09] LABS: Trileptal-Oxcarbazepine 21 ug/mL (10-35)
== END | disposition home or self-care (01) ==
LOC: LAB 08:45
PROVIDERS: PCP Family Medicine; Referring Provider Psychiatry & Neurology Neurology; Visit Provider Psychiatry & Neurology Neurology
DX: G50.0 Trigeminal neuralgia (principal); R79.89 Other specified abnormal findings of blood chemistry
CPT/HCPCS: 36415; 80053; 82542; 84439; 84443; 85027

== ENCOUNTER → 2024-09-15 | Outpatient (CLI) | payer OTHER, SELFPAY | END | disposition home or self-care (01) | LOC: RAD 13:16 | PROVIDERS: PCP Family Medicine; Referring Provider Family Medicine; Visit Provider Family Medicine | DX: M25.562 Pain in left knee (principal) | CPT/HCPCS: 73564 ==

== ENCOUNTER → 2024-10-18 | Outpatient (CLI) | payer OTHER, SELFPAY ==
--- NOTE | 2024-10-18 16:07 | MRI_ITS ---
EXAM: MR LEFT LOWER EXTREMITY WITHOUT INTRAVENOUS CONTRAST, KNEE CLINICAL INDICATION: LATERAL MENISCUS TEAR, PERSISTENT PAIN TECHNIQUE: Multiplanar and multisequence MR images of the left knee without intravenous contrast. COMPARISON: September 15, 2024 FINDINGS: BONES/JOINTS: Torn posterior root ligament of the medial meniscus. There is thickening of the posterior horn and body segment of the medial meniscus with no additional meniscal tear identified. Thickening of the proximal medial collateral ligament with adjacent mild edema is concerning for a low to moderate grade sprain injury. Low to moderate grade fissuring at the lateral patellar facet. EXTENSOR MECHANISM: Unremarkable. MEDIAL MENISCUS: See above. LATERAL MENISCUS: Unremarkable. MEDIAL CAPSULE/SUPPORTING STRUCTURES: See above. LATERAL CAPSULE/SUPPORTING STRUCTURES: Unremarkable. Lateral collateral ligamentous complex, inclusive of the popliteal tendon, are intact. ANTERIOR CRUCIATE LIGAMENT: Unremarkable. Intact. POSTERIOR CRUCIATE LIGAMENT: Unremarkable. Intact. MUSCLES: Unremarkable. CARTILAGE: Focal up to moderate grade chondral loss at the medial patellar facet. No subchondral marrow signal alterations. FLUID: Large amount of suprapatellar joint effusion with mild synovitis. No Soto''s cysts. OTHER SOFT TISSUES: Subcutaneous edema anterior to the patella and patellar tendon. No organized fluid collections are seen. MRI/Lower Ext Joint Only (Routine) IMPRESSION: 1. Torn posterior root ligament of the medial meniscus. 2. Thickening of the proximal medial collateral ligament with adjacent mild edema is concerning for a low to moderate grade sprain injury. Electronically Signed: Jarret Parson MD at 19:42 EST ,
== END | disposition home or self-care (01) ==
LOC: MRI 16:04
PROVIDERS: PCP Family Medicine; Referring Provider Family Medicine; Visit Provider Family Medicine
DX: S83.282A Other tear of lateral meniscus, current injury, left knee, initial encounter (principal); X58.XXXA Exposure to other specified factors, initial encounter
CPT/HCPCS: 73721

== ENCOUNTER 2024-11-08 18:00 | Outpatient (RCR) | payer OTHER, SELFPAY ==
--- NOTE | 2024-10-08 17:46 | HP.PTEVAL_ITS ---
Patient's Visit Information Visit Information Visit Information: CAROLYNN ASENCIO is a 63 year old M referred to Physical Therapy by Dr. Smith Plunkett MD with a diagnosis of L KNEE PAIN AND PATELLAE CHONDROMALACIA. Date of Evaluation: 10/08/24 Physical Therapist: Jeannie Vega, PT, Cert MDT Visit Plan Frequency: 2-3x /Week Duration: 4-6 Weeks Plan: 3x/week for 4-6 weeks for. Use bike to warm up. 1. ROM and patellar mobs L knee, rollout and stretch quad. 2. strengthen progression L LE. 3. Functional training on and off floor and steps. Progress to I HEP/gym per pt desire. Subjective Subjective: Work/Leisure: [employer]. 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 NOT OFF WORK FOR CURRENT CONDITION. Present symptoms: LEFT LATERAL KNEE PAIN. Present since: ABOUT 3 WKS AGO Pain Scale: WORST 3/10, LEAST 0/10 Currently: 0/10 Is it getting better, worse or staying the same: STAYING THE SAME Commenced as a result of: RIDING A BIKE FAST POSSIBLE ON BIKE PATH Symptoms at onset: CONSTANT PAIN OUTSIDE OF L KNEE THAT KEPT GETTING WORSE. TIGHTNESS. Worse: PRESSURE FROM THE KNEE BRACE, GOING UP AND DOWN STEPS WITHOUT THE KNEE B RACE ON, TWISTING LLE, TRYING TO GET DOWN ON KNEES - CAN ONLY GET PART WAY. TRYING TO GET BACK UP FROM A LOW STOOL. Better: KNEE BRACE. IBUPROFEN. ICE Disturbed sleep: NO Previous history/Previous treatment: UNREMARKABLE Treatment this episode: BRACE. PCP - ORAL STEROID, ICE AND IBUPROFEN 2X'S A DAY - HELPED A LOT. ORTHO - INCREASED IBUPROFEN TO 3X'S A DAY AND ORDERED MRI AND PT. PCP DX'D PATIENT WITH LATERAL MENISCUS TEAR PER PATIENT REPORT AND ORHTO THINKS PROBABLY SO TOO IN ADDITION TO THE TILTED KNEE CAP SEEN ON X-RAY. Gait: ABOUT TO WALK ABOUT 1/8 MILE TO [facility] AND BACK WITH KNEE BRACE ON AND BACK WITHOUT PAIN TODAY SLOWLY. Imaging: L KNEE X-RAYS AT [facility] SHOWING SLIGHTLY TILTED KNEE CAP PER PATIENT REPORT. MRI PENDING 10/18/24. PMH/Recent major surgery: HIGH CHOLESTEROL. TRIGEMITAL NEURALGIA R SIDE OF FACE. R KNEE meniscectomy 2021. L RCR 2016. OTHER: TIME CONSTRAINTS DUE TO NEEDING TO DRIVE FOR SON. Objective Objective: THIS PATIENT AMBULATES INDEP'LY AND SAFELY INTO PT WEARING A L KNEE BRACE WITH SYMMETRICAL GAIT PATTERN AND NOT USING ANY AD'S. INDEP TRANSFERS SIT TO STAND AND REVERSE WITH UE ASSIST. INDEP TRANSFER SIT TO SUPINE AND REVERSE WITHOUT UE ASSIST TO LE'S. SHANNA LE LIGHT TOUCH SENSATION GROSSLY INTACT AND SYMMETRICAL. ROM: L KNEE: 0-0-118. R KNEE: 0-0-118. MILD L HIP AND ANKLE TIGHTNESS. STRENGTH: L HIP 4/5, KNEE EXT 4/5, KNEE FLEX 4/5, ANKLE 5/5. R LE 5/5. BALANCE IS GOOD. OTHER: PATIENT IS ONLY ABLE TO PARTIALLY SQUAT. Special Tests L Knee Priscilla - ACL: Negative L Knee Posterior Drawer - PCL: Negative L Knee Valgus - MCL: Negative L Knee Varus - LCL: Negative L Knee Patellar Apprehension - PFS: Negative L Knee Patellar Grind - PFS: Negative Balance/Special Test Scores Lower Extremity Functional Score: 57 Goals Goal 1:: PATIENT WILL HAVE FULL PAINFREE L KNEE ROM WFL. Goal Time Frame: 4-6 Weeks Goal 2:: PATIENT WILL BE ABLE TO WALK AND GO UP AND DOWN STEPS WITHOUT BRACE WITH RECIPROCAL PATTERN WITH ONE HR WITHOUT PAIN. Goal Time Frame: 4-6 Weeks Goal 3:: PATIENT WILL BE INDEP WITH A HEP Goal Time Frame: 4-6 Weeks Goal 4:: PATIENT WILL BE ABLE TO DO ALL OF HIS NORMAL JOB DUTIES INCLUDING SQUATTING. Goal Time Frame: 4-6 Weeks Goal 5:: LEFS SCORE OF AT LEAST 66 Goal Time Frame: 4-6 Weeks Rehabilitation Potential Physical Therapy Diagnosis: L LATERAL KNEE PAIN, STIFFNESS AND WEAKNESS AFTER BIKE INJURY Rehabilitation Potential: Good Anticipated Interventions Patient/Client Instruction: Educate patient on: Condition, Plan of Care and Risk Factors For the Purpose of:: To improve self management Therapeutic Exercise to Include: Strength training, Flexibilty training, Neuromotor development, In an aquatic setting and Active ROM For the Purpose of:: To decrease pain, To increase ROM, To improve muscle performance and motor function, To increase tolerance to activity/condition/position, To improve ability of physical actions for home/community/work/leisure, To improve gait and locomotor functions and To increase flexibility/ROM Text: Thank you for the opportunity to evaluate your patient. For Medicare and Medicare HMO plans, please review the plan of care and approve it. It will need to be FAXED BACK to us at [phone] for Medicare purposes. For Medicare only, by signing this I certify the plan of care. Please let me know if there are questions or concerns regarding this plan of care. Physician Signature: Date:
--- NOTE | 2024-11-08 18:34 | HP.PTDCSUM ---
Discharge Summary D/C summary: It has been my pleasure to treat CAROLYNN ASENCIO referred by Dr. Smith Plunkett MD, with the diagnosis of L KNEE PAIN AND PATELLAE CHONDROMALACIA for a total of 8 visit(s). Discharge Date: Please see the following information for a summary of their discharge status. Subjective Subjective: Pt reports he has really done well. Ready to transition to I HEP Overall Improvement % Improvement: 70 Objective Objective/Function: L knee pain is 0-1/10 L knee ROM: 0-125 degrees Pt is able to negotiate 10 stairs without a HR or difficulty Pt is still limited with squatting at work Pt is I with HEP Goals Goal 1:: PATIENT WILL HAVE FULL PAINFREE L KNEE ROM WFL. Goal Progress: Goal Met Goal 2:: PATIENT WILL BE ABLE TO WALK AND GO UP AND DOWN STEPS WITHOUT BRACE WITH RECIPROCAL PATTERN WITH ONE HR WITHOUT PAIN. Goal Progress: Goal Met Goal 3:: PATIENT WILL BE INDEP WITH A HEP Goal Progress: Goal Met Goal 4:: PATIENT WILL BE ABLE TO DO ALL OF HIS NORMAL JOB DUTIES INCLUDING SQUATTING. Goal Progress: Progressing Goal 5:: LEFS SCORE OF AT LEAST 66 Goal Progress: Goal Met Plan Plan: Discharge to [facility] D/C Information d/c sentence: If there are questions or concerns regarding this patient's physical therapy, please feel free to call me at [phone]. Thank you for the referral of this patient. Sincerely, Marc Fernandes, PT, ATC Balance/Gait/Functional tests Balance/Special Test Scores Lower Extremity Functional Score: 60 Improvement % Improvement: 70
== END 2024-11-08 19:00 | disposition home or self-care (01) ==
LOC: PT 18:00
PROVIDERS: PCP Family Medicine; Referring Provider Specialist; Visit Provider Specialist
DX: M25.562 Pain in left knee (principal); M22.42 Chondromalacia patellae, left knee
CPT/HCPCS: 97110; 97140; 97162; 97530

== ENCOUNTER → 2025-01-03 | Outpatient (CLI) | payer OTHER, SELFPAY ==
--- NOTE | 2025-01-03 18:40 | CT_ITS ---
PROCEDURE: SINUS/FACIAL BONE REASON FOR EXAM: Chronic maxillary sinusitis. TECHNIQUE: CT of the paranasal sinuses with contrast. CONTRAST: COMPARISON: None. FINDINGS: Frontal: Frontal sinuses and frontoethmoidal recesses appear clear. Ethmoid: Partial opacification of the ethmoid sinuses. Sphenoid: Sphenoid sinuses and sphenoethmoidal recesses appear clear. Maxillary: Maxillary sinuses appear clear. The ostiomeatal units appear widely patent. Turbinates: Unremarkable. Nasal Septum: Midline. No large nasal septal spur. Mastoids/Middle Ears: Clear at visualized levels. Visualized intracranial structures are unremarkable. Small benign-appearing submental lymph nodes. CT/Sinus/Facial Bone IMPRESSION: Partial opacification of the ethmoid sinuses. One or more dose reduction techniques were used (e.g., Automated exposure contr ol, adjustment of the mA and/or kV according to patient size, use of iterative reconstruction technique). Reading Location: [facility]
== END | disposition home or self-care (01) ==
LOC: CT 18:39
PROVIDERS: PCP Family Medicine; Referring Provider Family Medicine; Visit Provider Family Medicine
DX: J32.0 Chronic maxillary sinusitis (principal)
CPT/HCPCS: 70486

== ENCOUNTER → 2025-03-02 | Outpatient (CLI) | payer OTHER, SELFPAY ==
[2025-03-02 10:19] LABS: PSA,Total - Annual Screen 7.67 ng/mL (0.02-4.00)
== END | disposition home or self-care (01) ==
PROVIDERS: PCP Family Medicine; Referring Provider Family Medicine; Visit Provider Family Medicine
DX: Z12.5 Encounter for screening for malignant neoplasm of prostate (principal)
CPT/HCPCS: 36415; 84153; G0103